=== PATIENT | male | born 1935 | race Caucasian/White ===

== ENCOUNTER 2017-12-25 07:34 | Emergency (ER) | payer MEDICARE ==
[~2017-12-25] VITALS: Ht 170.2 cm; Wt 69.0 kg
[~2017-12-25 07:34] MED LIST: ASPI-770 PO; HYDR12.53 PO; POTA20TA91 PO; ROSU5TAB PO; SPIR25TA3 PO
[2017-12-25] MEDS ORDERED: ASPIRIN 81 MG TABLET CHEW PO ONE (08:00)
[2017-12-25] MEDS ORDERED: SODIUM CHLORIDE FLUSH 10ML SYR IVF ONE (08:00)
[2017-12-25] MEDS ORDERED: SODIUM CHLORIDE 0.9%, 500ML IVBOLUS ONE (08:00)
[2017-12-25] MEDS ORDERED: MECLIZINE CHEWABLE 25 MG TAB PO ONE (08:00)
[2017-12-25 08:11] LABS: BASOPHILS # (AUTO) 0.01 x10^3/uL (0-0.1); BASOPHILS % (AUTO) 0 % (0-1); EOSINOPHILS # (AUTO) 0.04 x10^3/uL (0-0.4); EOSINOPHILS % (AUTO) 1 % (1-7); LYMPHOCYTES # (AUTO) 1.12 x10^3/uL (1-3.4); LYMPHOCYTES % (AUTO) 23 % (22-44); MD NO; MEAN CORPUSCULAR HEMOGLOBIN 31.2 pg (27.5-34.5); MEAN CORPUSCULAR VOLUME 91.8 fL (81-97); MEAN PLATELET VOLUME 9.3 fL (7.4-10.4); MONOCYTES # (AUTO) 0.49 x10^3/uL (0.2-0.8); MONOCYTES % (AUTO) 10 % (2-9); NEUTROPHILS # (AUTO) 3.15 x10^3/uL (1.8-6.8); NEUTROPHILS % (AUTO) 66 % (42-75); PLATELET COUNT 157 x10^3/uL (130-400); RED BLOOD COUNT 4.72 x10^6/uL (4.38-5.82); RED CELL DISTRIBUTION WIDTH 12.6 % (9.4-14.8)
[2017-12-25 08:18] LABS: ALBUMIN 3.4 g/dL (3.4-5.0); ANION GAP 6 mmol/L (5-15); CALCIUM 8.6 mg/dL (8.5-10.1); CHLORIDE 108 mmol/L (98-107); CREATININE 1.07 mg/dL (0.7-1.3)
[2017-12-25 08:22] LABS: TROPONIN I < 0.015 ng/mL (0.000-0.045)
[2017-12-25] MEDS ORDERED: ASPIRIN 81 MG TABLET CHEW ONE (08:59)
[2017-12-25] MEDS ORDERED: MECLIZINE CHEWABLE 25 MG TAB ONE (08:59)
[2017-12-25 12:29] VITALS: BP 147/76
== END 2017-12-25 12:31 | disposition home or self-care (01) ==
LOC: ED 08:22
DX: R42 Dizziness and giddiness (principal)
CPT/HCPCS: 36415; 70450; 71046; 80048; 82040; 83880; 84484; 85025; 93005; 96360; 96361; 99285; J7040

== ENCOUNTER → 2018-01-17 | Outpatient (CLI) | payer MEDICARE | END | disposition home or self-care (01) | LOC: RAD 07:29 | PROVIDERS: ATTEND Internal Medicine | DX: G31.89 Other specified degenerative diseases of nervous system (principal) | CPT/HCPCS: 70551 ==

== ENCOUNTER 2019-02-28 12:20 | Emergency (ER) | payer MEDICARE ==
[~2019-02-28] VITALS: Ht 170.2 cm; Wt 70.0 kg
[~2019-02-28 12:20] MED LIST changes: -ASPI-770 PO; +ASPI81TA59 PO; +HYDR12.517 PO; -HYDR12.53 PO; -SPIR25TA3 PO; +SPIR25TA5 PO
[2019-02-28] MEDS ORDERED: SODIUM CHLORIDE FLUSH 10ML SYR IVF ONE (12:30)
--- NOTE | 2019-02-28 12:49 | NUR ---
THIS IS AN 83 YO MALE WHO PRESENTS TO THE ER C/O EPISODE IN WHICH PT WAS REPEATNG TO "YOU NEED TO WRITE DOWN THE NUMBER 72" AND WAS UNABLE TO REPEAT SENTENCES BACK TO . SYMPTOMS HAVE NOW RESOLVED AND PT IS AO X 4 AND ABLE TO ANSWER ALL QUESTIONS APPROPRIATELY. SPEECH CLEAR. SENSATION INTACT. COORDINATOR CARDIOPULMONARY SERVICES EQUAL BILATERALLY. PT ABLE TO VITALE W/O DIFFICULTY. PT WAS STEADY UPON AMBUALTION TO AME. AT BEDSIDE. PT TO MRI AT THIS TIME.
[2019-02-28 12:56] LABS: BASOPHILS # (AUTO) 0.02 x10^3/uL (0-0.1); BASOPHILS % (AUTO) 0 % (0-1); EOSINOPHILS # (AUTO) 0.02 x10^3/uL (0-0.4); EOSINOPHILS % (AUTO) 0 % (1-7); LYMPHOCYTES # (AUTO) 1.37 x10^3/uL (1-3.4); LYMPHOCYTES % (AUTO) 25 % (22-44); MD NO; MEAN CORPUSCULAR HEMOGLOBIN 31.7 pg (27.5-34.5); MEAN CORPUSCULAR HGB CONC 34.4 g/dL (33.2-36.2); MEAN CORPUSCULAR VOLUME 92.3 fL (81-97); MEAN PLATELET VOLUME 8.8 fL (7.4-10.4); MONOCYTES # (AUTO) 0.43 x10^3/uL (0.2-0.8); MONOCYTES % (AUTO) 8 % (2-9); NEUTROPHILS # (AUTO) 3.73 x10^3/uL (1.8-6.8); NEUTROPHILS % (AUTO) 67 % (42-75); PLATELET COUNT 188 x10^3/uL (130-400); RED BLOOD COUNT 4.74 x10^6/uL (4.38-5.82); RED CELL DISTRIBUTION WIDTH 13.1 % (9.4-14.8)
[2019-02-28 13:05] LABS: INTERNATIONAL NORMALIZED RATIO 1.09 (0.93-1.1); PROTHROMBIN TIME 11.4 Seconds (9.6-11.5)
[2019-02-28 13:08] LABS: ALBUMIN 3.8 g/dL (3.4-5.0); ANION GAP 6 mmol/L (5-15); CALCIUM 8.9 mg/dL (8.5-10.1); CHLORIDE 107 mmol/L (98-107)
--- NOTE | 2019-02-28 13:45 | NUR ---
PT CURRENTLY RESTING ON [employer]. NAD NOTED. PT AO X 4. NEURO INTACT. SKIN PWD. RESP EVEN AND EQAUL. AT BEDSIDE. PT AWARE THAT WE ARE WAITING FOR LAB/IMAGING RESULTS. CALL LIGHT WITHINR EACH. WILL CONT TO MONITOR PT.
[2019-02-28] MEDS ORDERED: ASPIRIN 325 MG TABLET ONE (13:52)
[2019-02-28] MEDS ORDERED: ASPIRIN 325 MG TABLET PO ONE (14:00)
[2019-02-28 14:19] VITALS: BP 118/71
--- NOTE | 2019-02-28 14:25 | NUR ---
TESSA JOYCE AT BEDSIDE FOR RECHECK/EXPLANATION OF RESULTS. PT AND VERBALIZE UNDERSTANDING OF DC INSTRUCTIONS/POC, DENY ANY QUESTIONS.
== END 2019-02-28 14:43 | disposition home or self-care (01) ==
LOC: ED 13:33
DX: G45.9 Transient cerebral ischemic attack, unspecified (principal); R94.31 Abnormal electrocardiogram [ECG] [EKG]
CPT/HCPCS: 36415; 70551; 80048; 82040; 85025; 85610; 93005; 93880; 99284

== ENCOUNTER 2020-01-13 07:54 | Emergency (ER) | payer MEDICARE ==
[~2020-01-13] VITALS: Ht 170.2 cm; Wt 72.0 kg
[2020-01-13] MEDS ORDERED: SODIUM CHLORIDE FLUSH 10ML SYR IVF ONE (08:30)
[2020-01-13] MEDS ORDERED: SODIUM CHLORIDE 0.9% 1,000ML IVBOLUS ONE (08:30)
--- NOTE | 2020-01-13 08:35 | NUR ---
TASK RN: CONTACT WITH PT, 84 YR OLD MALE HERE WITH C/O "I FELT WEIRD THIS MORNING GETTING UP. UNCERTAIN, DIZZY" DENIES PAIN OR SOB. PT DENIES DIZZINESS AT THIS TIME. "NOT WHILE LAYING DOWN." PTS AT BEDSIDE. PT SB PER MONITOR. AUTO BP AND PULSE OX IN PLACE.
--- NOTE | 2020-01-13 08:41 | NUR ---
REPORT TO MARIO MCKEON
[2020-01-13 08:50] LABS: BASOPHILS # (AUTO) 0.01 x10^3/uL (0-0.1); BASOPHILS % (AUTO) 0 % (0-1); EOSINOPHILS # (AUTO) 0.05 x10^3/uL (0-0.4); EOSINOPHILS % (AUTO) 1 % (1-7); LYMPHOCYTES # (AUTO) 1.13 x10^3/uL (1-3.4); LYMPHOCYTES % (AUTO) 21 % (22-44); MD NO; MEAN CORPUSCULAR HGB CONC 34.1 g/dL (33.2-36.2); MEAN CORPUSCULAR VOLUME 93.8 fL (81-97); MEAN PLATELET VOLUME 9.1 fL (7.4-10.4); MONOCYTES # (AUTO) 0.52 x10^3/uL (0.2-0.8); MONOCYTES % (AUTO) 10 % (2-9); NEUTROPHILS # (AUTO) 3.71 x10^3/uL (1.8-6.8); NEUTROPHILS % (AUTO) 69 % (42-75); PLATELET COUNT 172 x10^3/uL (130-400); RED CELL DISTRIBUTION WIDTH 12.6 % (9.4-14.8)
--- NOTE | 2020-01-13 08:53 | NUR ---
PT STATES THIS MORNING HE FEELS WOBBLY. HE FELT A BIT OF CONFUSION WHEN MAKING BREAKFAST. IV ESTABLISHED WITH FLUIDS INFUSING
[2020-01-13 08:59] LABS: ALANINE AMINOTRANSFERASE 16 U/L (12-78); ALBUMIN 3.3 g/dL (3.4-5.0); ANION GAP 3 mmol/L (5-15); CALCIUM 8.3 mg/dL (8.5-10.1); CHLORIDE 109 mmol/L (98-107); CREATININE 1.25 mg/dL (0.7-1.3)
[2020-01-13 09:02] LABS: ALKALINE PHOSPHATASE 65 U/L (45-117); BILIRUBIN,TOTAL 0.6 mg/dL (0.2-1.0); TOTAL PROTEIN 7.1 g/dL (6.4-8.2)
--- NOTE | 2020-01-13 09:20 | NUR ---
UOB WITHTOUT ASSISTANCE, AT SIDE. AMBULATED TO BATHROOM.
[2020-01-13 09:40] VITALS: BP 124/70
--- NOTE | 2020-01-13 09:51 | NUR ---
MD RE-EVALUATING PT AND DISCUSSING POC.
== END 2020-01-13 11:04 | disposition other institution (70) ==
LOC: ED 09:19
DX: R55 Syncope and collapse (principal); I95.9 Hypotension, unspecified; I11.9 Hypertensive heart disease without heart failure; R79.89 Other specified abnormal findings of blood chemistry; Z86.73 Personal history of transient ischemic attack (TIA), and cerebral infarction without residual deficits
CPT/HCPCS: 36415; 80053; 85025; 93005; 99284; J7030

== ENCOUNTER 2020-04-24 17:36 | Inpatient (IN) | payer MEDICARE ==
[~2020-04-24] VITALS: Ht 170.2 cm; Wt 67.9 kg
--- NOTE | 2020-04-24 17:49 | NUR ---
CODE [facility] CALLED.
--- NOTE | 2020-04-24 17:55 | NUR ---
CODE NEURO PAGED @ [id number] NEUROLOGY PAGED @ [phone] RETURNED CALL @ [phone]
[2020-04-24 18:13] LABS: BASOPHILS # (AUTO) 0.02 x10^3/uL (0-0.1); BASOPHILS % (AUTO) 0 % (0-1); EOSINOPHILS # (AUTO) 0.09 x10^3/uL (0-0.4); EOSINOPHILS % (AUTO) 2 % (1-7); LYMPHOCYTES # (AUTO) 1.58 x10^3/uL (1-3.4); LYMPHOCYTES % (AUTO) 32 % (22-44); MD NO; MEAN CORPUSCULAR HEMOGLOBIN 31.5 pg (27.5-34.5); MEAN CORPUSCULAR HGB CONC 33.4 g/dL (33.2-36.2); MEAN CORPUSCULAR VOLUME 94.4 fL (81-97); MEAN PLATELET VOLUME 9.4 fL (7.4-10.4); MONOCYTES # (AUTO) 0.76 x10^3/uL (0.2-0.8); MONOCYTES % (AUTO) 16 % (2-9); NEUTROPHILS # (AUTO) 2.48 x10^3/uL (1.8-6.8); NEUTROPHILS % (AUTO) 50 % (42-75); PLATELET COUNT 164 x10^3/uL (130-400); RED BLOOD COUNT 4.51 x10^6/uL (4.38-5.82); RED CELL DISTRIBUTION WIDTH 13.1 % (9.4-14.8)
[2020-04-24 18:16] LABS: INTERNATIONAL NORMALIZED RATIO 1.03 (0.93-1.1); PROTHROMBIN TIME 10.9 Seconds (9.6-11.5)
[2020-04-24 18:19] LABS: ALANINE AMINOTRANSFERASE 20 U/L (12-78); ALBUMIN 3.7 g/dL (3.4-5.0); ANION GAP 5 mmol/L (5-15); CALCIUM 8.8 mg/dL (8.5-10.1); CHLORIDE 110 mmol/L (98-107); CREATININE 1.13 mg/dL (0.7-1.3)
[2020-04-24 18:21] LABS: ALKALINE PHOSPHATASE 68 U/L (45-117); BILIRUBIN,TOTAL 0.3 mg/dL (0.2-1.0); TOTAL PROTEIN 7.6 g/dL (6.4-8.2)
[2020-04-24] MEDS ORDERED: ASPIRIN 81 MG TABLET CHEW PO ONE (18:30)
--- NOTE | 2020-04-24 18:46 | NUR ---
REPORT GIVEN TO MIKE ROBERTSON.
[2020-04-24] MEDS ORDERED: ASPIRIN 81 MG TABLET CHEW ONE (18:49)
--- NOTE | 2020-04-24 18:53 | NUR ---
LATE ENTRY FOR EVENTS, 1748. THIS PT PRESENTED TO THE ED AFTER HIS BROUGHT HIM IN, SHE NOTED APHAGIA AT 1715 WHEN THE PT COULDN'T ANSWER HER QUESTIONS. HE PRESENTED TO THE ED WITH MILD APHAGIA, SLOW TO RESPOND. CODE NEURO WAS CALLED AND PT WAS TRANSPORTED TO CT. [address] DR[address] MATTHEWS VIA TELE-MEDICINE TO DO [facility] STROKE SCALE, PT SCORED 0. DETERMINED NO TPA TO BE ADMINISTERED. NOW PT ASKING ABOUT IF HIS S/SX WILL RESOVLE. RN EDUCATED ABOUT TIAs. SPEECH IMPROVEMENT NOTED BY RN, PT STATES HE STILL FEELS HE CAN'T EXPRESS EVERYTHING HE WANTS TO. HOSPITALIST TO BEDSIDE.
[2020-04-24 19:27] VITALS: BP 158/67
[2020-04-24] MEDS ORDERED: BISACODYL 10 MG SUPP PR PRN (19:30)
[2020-04-24] MEDS ORDERED: POLYETHYLENE GLYCOL 17 GM PACKET PO PRN (19:30)
[2020-04-24] MEDS ORDERED: DOCUSATE 100 MG CAPSULE PO PRN (19:30)
[2020-04-24] MEDS ORDERED: ONDANSETRON 4 MG TABLET PO PRN (19:30)
[2020-04-24] MEDS ORDERED: ACETAMINOPHEN 650 MG/20.3 ML UDC PO PRN (19:30)
[2020-04-24 20:20] VITALS: BP 158/67
[2020-04-24] MEDS ORDERED: ATORVASTATIN 40 MG TABLET PO SCH (21:00)
[2020-04-24] MEDS ORDERED: CHOL10003 PO (23:09)
[2020-04-24] MEDS ORDERED: LISI5TAB7 PO (23:09)
[2020-04-25] VITALS (7 sets, daily range): BP systolic 124–151; BP diastolic 58–82
[2020-04-25 05:00] LABS: BASOPHILS # (AUTO) 0.01 x10^3/uL (0-0.1); BASOPHILS % (AUTO) 0 % (0-1); EOSINOPHILS % (AUTO) 2 % (1-7); LYMPHOCYTES # (AUTO) 1.42 x10^3/uL (1-3.4); LYMPHOCYTES % (AUTO) 32 % (22-44); MD NO; MEAN CORPUSCULAR HEMOGLOBIN 31.2 pg (27.5-34.5); MEAN CORPUSCULAR HGB CONC 33.1 g/dL (33.2-36.2); MEAN CORPUSCULAR VOLUME 94.5 fL (81-97); MEAN PLATELET VOLUME 9.4 fL (7.4-10.4); MONOCYTES # (AUTO) 0.62 x10^3/uL (0.2-0.8); MONOCYTES % (AUTO) 14 % (2-9); NEUTROPHILS # (AUTO) 2.32 x10^3/uL (1.8-6.8); NEUTROPHILS % (AUTO) 52 % (42-75); PLATELET COUNT 139 x10^3/uL (130-400); RED BLOOD COUNT 3.93 x10^6/uL (4.38-5.82)
[2020-04-25 05:10] LABS: ALBUMIN 2.9 g/dL (3.4-5.0); ANION GAP 3 mmol/L (5-15); CALCIUM 8.3 mg/dL (8.5-10.1); CHLORIDE 111 mmol/L (98-107)
[2020-04-25 05:15] LABS: ALANINE AMINOTRANSFERASE 15 U/L (12-78); ALKALINE PHOSPHATASE 52 U/L (45-117); BILIRUBIN,TOTAL 0.4 mg/dL (0.2-1.0); CHOL/HDL RATIO 2.9; CHOLESTEROL, TOTAL 107 mg/dL (140-239); CREATININE 0.99 mg/dL (0.7-1.3); HDL CHOL % 35 % (26-37); HDL CHOLESTEROL (DIRECT) 37 mg/dL (40-60); LDL CHOLESTEROL,CALCULATED 48 mg/dL (54-169); LDL/HDL RATIO 1.3 (0.5-3.0); TRIGLYCERIDES 108 mg/dL (50-200); VLDL CHOLESTEROL 22 mg/dL (0-25)
[2020-04-25] MEDS: SPIRONOLACTONE 25 MG TABLET PO SCH (08:15)
[2020-04-25] MEDS: ASPIRIN 325 MG TABLET EC PO SCH (08:15)
[2020-04-25] MEDS: HYDROCHLOROTHIAZIDE 12.5 MG CAPSULE PO SCH (08:16)
[2020-04-25] MEDS: CHOLECALCIFEROL 1,000 UNIT TABLET PO SCH (08:16)
[2020-04-25] MEDS: LISINOPRIL 5 MG TABLET PO SCH (08:16)
[2020-04-26 00:28] VITALS: BP 148/62
[2020-04-26 08:11] LABS: BASOPHILS # (AUTO) 0.01 x10^3/uL (0-0.1); BASOPHILS % (AUTO) 0 % (0-1); EOSINOPHILS # (AUTO) 0.07 x10^3/uL (0-0.4); EOSINOPHILS % (AUTO) 1 % (1-7); LYMPHOCYTES # (AUTO) 1.27 x10^3/uL (1-3.4); LYMPHOCYTES % (AUTO) 22 % (22-44); MD NO; MEAN CORPUSCULAR HEMOGLOBIN 31.7 pg (27.5-34.5); MEAN CORPUSCULAR HGB CONC 33.9 g/dL (33.2-36.2); MEAN CORPUSCULAR VOLUME 93.6 fL (81-97); MEAN PLATELET VOLUME 9.3 fL (7.4-10.4); MONOCYTES # (AUTO) 0.64 x10^3/uL (0.2-0.8); MONOCYTES % (AUTO) 11 % (2-9); NEUTROPHILS # (AUTO) 3.84 x10^3/uL (1.8-6.8); NEUTROPHILS % (AUTO) 66 % (42-75); PLATELET COUNT 158 x10^3/uL (130-400); RED BLOOD COUNT 4.35 x10^6/uL (4.38-5.82); RED CELL DISTRIBUTION WIDTH 12.7 % (9.4-14.8)
[2020-04-26 08:17] VITALS: BP 138/65
[2020-04-26] MEDS: CHOLECALCIFEROL 1,000 UNIT TABLET PO SCH (09:05)
[2020-04-26] MEDS: LISINOPRIL 5 MG TABLET PO SCH (09:05)
[2020-04-26] MEDS: HYDROCHLOROTHIAZIDE 12.5 MG CAPSULE PO SCH (09:05)
[2020-04-26] MEDS: ASPIRIN 325 MG TABLET EC PO SCH (09:05)
[2020-04-26] MEDS: SPIRONOLACTONE 25 MG TABLET PO SCH (09:05)
[2020-04-26 13:57] VITALS: BP 143/75
== END 2020-04-26 17:20 | disposition home or self-care (01) | DRG 69 ==
LOC: ED 17:53 → EDIP 18:29 → 4WST 19:17 → DCLOUNGE 04-26 17:11
PROVIDERS: ADMIT Family Medicine; ATTEND Family Medicine
DX: G45.9 Transient cerebral ischemic attack, unspecified (principal); G93.40 Encephalopathy, unspecified; R47.01 Aphasia; R29.700 NIHSS score 0; I07.1 Rheumatic tricuspid insufficiency; E78.5 Hyperlipidemia, unspecified; I10 Essential (primary) hypertension; R27.0 Ataxia, unspecified; R90.82 White matter disease, unspecified; Z79.82 Long term (current) use of aspirin; Z86.73 Personal history of transient ischemic attack (TIA), and cerebral infarction without residual deficits; Z90.49 Acquired absence of other specified parts of digestive tract
CPT/HCPCS: 36415; 70450; 70551; 80047; 80053; 80061; 82962; 85025; 85610; 93306; 93880; 95819; G0378; 92523-GN